=== PATIENT | male | born 1970 | race Caucasian/White ===

== ENCOUNTER 2024-11-28 00:07 | Inpatient (IN) | payer OTHER ==
[~2024-11-28] VITALS: Ht 170.2 cm; Wt 83.9 kg
[2024-11-28 02:14] LABS: PLATELET COUNT (AUTO) 460 K/uL (150-450); RED BLOOD CELL COUNT(AUTO) 4.27 MIL/uL (4.5-6.0); RED CELL DISTRIBUTION WIDTH 14.3 % (11.5-15.0); WHITE BLOOD COUNT (AUTO) 20.1 K/uL (4.3-11.0)
[2024-11-28] MEDS ORDERED: VANCOMYCIN 1 GM /D5W 250 ML PB IV ONE (02:15)
[2024-11-28] MEDS ORDERED: VANCOMYCIN 500 MG VIAL ONE (02:15)
[2024-11-28 02:21] LABS: CALCIUM, SERUM 9.0 mg/dL (8.5-10.1); CREATININE 1.0 mg/dL (0.6-1.3); SODIUM SERUM 132.0 mmol/L (136-145); UREA NITROGEN, BLOOD 14.0 mg/dL (7-18)
[2024-11-28] MEDS: VANCOMYCIN HCL 1.25 GM in IV D5W 260 ML IV ONE (02:26)
[2024-11-28 02:37] LABS: ASPARTATE AMINOTRANSFERASE 23.0 U/L (15-37); TOTAL PROTEIN, SERUM 9.4 g/dL (6.4-8.2)
[2024-11-28] MEDS ORDERED: IOHEXOL-300 100 ML VIAL IV ONE (03:09)
[2024-11-28] MEDS ORDERED: IV NS 0.9% 250 ML IV ONE (03:09)
[2024-11-28] MEDS ORDERED: CT SWABBABLE VALVE TRANS SET 1 EA INFUS.SET MC ONE (03:09)
[2024-11-28 05:42] LABS: APPEARANCE,URINE CLEAR (CLEAR); BLOOD, URINE 2+ Ery/uL (NEGATIVE); LEUKOCYTE ESTERASE ,URINE NEGATIVE (NEGATIVE); NITRITE, URINE NEGATIVE (NEGATIVE); UGLUCOSE NEGATIVE (NEGATIVE)
[2024-11-28 05:43] LABS: ADD URINE CULTURE NO; SQUAMOUS EPITHELIAL CELL,UR Few /HPF (None Seen)
[2024-11-28 05:52] LABS: AMPHETAMINE, URINE POSITIVE (NEGATIVE); BARBITURATE, URINE NEGATIVE (NEGATIVE); BENZODIAZEPINE, URINE NEGATIVE (NEGATIVE); CANNABINOID, URINE NEGATIVE (NEGATIVE); COCCAINE, URINE NEGATIVE (NEGATIVE); OPIATE, URINE POSITIVE (NEGATIVE)
[2024-11-28 07:00] VITALS: O2SAT 98
[2024-11-28] MEDS: PIPERACILLIN /TAZOBACTAM 3.375 G in IV D5W 50 ML IV ONE (07:44)
[2024-11-28] MEDS ORDERED: MAGNESIUM HYDROXIDE 30 ML UDC PO PRN (08:00)
[2024-11-28] MEDS ORDERED: DOSING PER PHARMACY-VANCOMYCIN IV XX PRN (08:00)
[2024-11-28] MEDS ORDERED: ZOLPIDEM TARTRATE 5 MG TABLET PO PRN (08:00)
[2024-11-28] MEDS ORDERED: Z GUARD REMEDY 4 OZ OINT TP PRN (08:00)
[2024-11-28] MEDS ORDERED: DOSING PER PHARMACY-ZOSYN IV 1 EA EA XX PRN (08:00)
[2024-11-28] MEDS ORDERED: ACETAMINOPHEN 325 MG TABLET PO PRN (08:00)
[2024-11-28] MEDS ORDERED: ONDANSETRON HCL/PF 4 MG/2 ML VIAL IVP PRN (08:00)
[2024-11-28] MEDS ORDERED: MAG HYDROX/AL HYDROX/SIMETH 30 ML UDC PO PRN (08:00)
[2024-11-28 08:30] VITALS: BP 120/72; TEMP 98.6; O2SAT 97
[2024-11-28] MEDS: VANCOMYCIN 500 MG in IV D5W 100ml IV ONE (10:56)
[2024-11-28] MEDS: ZOSYN IVPB 3.375 G in IV D5W 50ml IV SCH (15:02)
[2024-11-28 16:00] VITALS: BP 126/81; TEMP 100.8; O2SAT 92
[2024-11-28] MEDS ORDERED: VANCOMYCIN HCL 1.25 GM in IV D5W 250 ML IV SCH (22:00)
== END 2024-11-28 18:10 | disposition left against medical advice (07) | DRG 720 ==
LOC: ER 00:09 → MS IN 08:09 → MED 08:40
PROVIDERS: ADMIT Student in an Organized Health Care Education/Training Program; ATTEND Student in an Organized Health Care Education/Training Program
DX: A41.9 Sepsis, unspecified organism (principal); E44.1 Mild protein-calorie malnutrition; E87.1 Hypo-osmolality and hyponatremia; D64.9 Anemia, unspecified; L02.511 Cutaneous abscess of right hand; L03.113 Cellulitis of right upper limb; Z53.29 Procedure and treatment not carried out because of patient's decision for other reasons; D75.839 Thrombocytosis, unspecified; W10.9XXA Fall (on) (from) unspecified stairs and steps, initial encounter; Y92.9 Unspecified place or not applicable; Z91.81 History of falling; W19.XXXA Unspecified fall, initial encounter
CPT/HCPCS: 36415; 73130-TC; 73201-TC; 80053-TC; 81001; 85025-TC; 87040-TC; 87081-TC; A4223; G0378; J2543; J3373; J7050; J7060; Q9967